=== PATIENT | male | born 1975 | race Caucasian/White ===

== ENCOUNTER 2017-07-03 13:50 | Observation (INO) ==
--- NOTE | 2017-07-03 14:09 | Emergency Department Note ---
Disposition Clinical Impression: Hypokalemia Disposition: Admitted As Inpatient Condition: Good Weakness HPI - General Chief complaint: ED General Medical Stated complaint: has "episode" hypokalemia, not able to sit up Source: patient Mode of arrival: EMS Limitations: no limitations Nursing Notes Reviewed: Yes Vital Signs Reviewed: Yes - History of Present Illness HPI Narrative: Patient presents to the ED via EMS with complaint of generalized weakness. States when he woke up around 11:15 this morning he was weak all over and did not have enough strength to be able to sit up and had to be helped out of bed by roommates at [facility]. 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 [facility] he saw numerous specialists when he was younger, including endocrinology, who could not figure out an underlying cause for his hyperkalemia. He states his last episode of hypokalemia was approximately a year ago when he was in detox at [facility]. [facility] he went to the [place] yesterday on an outing, walk for 2-1/2 hours and did not hydrate well. [facility] he has also been working out heavily. He denies any muscle cramps or pain but states the general weakness is how he feels when his potassium is low. When he is at home he will increase his oral potassium on his own but he is not allowed to take his medications other than how the prescription is written while at [facility]. He has been there for 5 weeks. 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 He has smoked a half a pack per day for the past 22 years. Denies any alcohol use. He denies any abdominal pain, nausea, vomiting or diarrhea. No urinary symptoms. No upper respiratory symptoms. He has no other chronic medical problems and does not take any other medications. Denies any other endocrine problems. Pain Scale: 0 - Related Data Home Medications Medication Instructions Recorded Confirmed Potassium Chloride [Klor-Con 10] 10 meq PO DAILY 07/03/17 07/03/17 Allergies Allergy/AdvReac Type Severity Reaction Status Date / Time No Known Allergies Allergy Verified 07/03/17 13:54 Constitutional: Reports: weakness. Denies: fever, chills, weight change Eyes: Denies: eye pain, eye discharge, vision change ENT ED: Denies: ear pain, throat pain, dental pain, hearing loss, epistaxis, congestion, dysphagia Cardiovascular: Denies: chest pain, palpitations, dyspnea on exertion, edema, syncope Respiratory: Denies: cough, dyspnea, wheezes, hemoptysis, stridor Gastrointestinal: Denies: abdominal pain, nausea, vomiting, diarrhea, constipation, hematemesis, melena, hematochezia Genitourinary: Denies: urgency, dysuria, frequency, hematuria Musculoskeletal: Denies: back pain, neck pain, arthralgia, myalgia Integumentary: Denies: rash, abrasion, lesions Neurological: Denies: headache, weakness, numbness, paresthesias, confusion, abnormal gait, vertigo Psychiatric: Denies: anxiety, depression, suicidal thoughts, homicidal thoughts , auditory hallucinations, visual hallucinations Endocrine: Denies: fatigue Hematological/Lymphatic: Denies: easy bleeding, easy bruising Allergic/Immunologic: Denies: facial swelling, urticaria Past Medical History - Past Medical History Medical history: Reports: other (hypokalemia) Psychiatric history: Reports: no psych history - Social History Smoking Status: Current every day smoker Alcohol use: Reports: none Drug use: Reports: none Physical Exam - General Limitations: no limitations General appearance: alert, in no apparent distress - Head Head exam: atraumatic, normocephalic, normal inspection - Eye Eye exam: Present: normal appearance, PERRL, EOMI - ENT ENT exam: normal exam, normal oropharynx, mucous membranes moist - Neck Neck exam: Present: normal inspection, full ROM, trachea midline - Chest Chest inspection: Present: normal inspection, symmetric chest wall rise - Respiratory Respiratory exam: Present: normal lung sounds bilaterally - Cardiovascular Cardiovascular exam: Present: regular rate, normal rhythm, normal heart sounds - Abdominal Exam Abdominal exam: Present: soft, Non-Tender. Absent: tenderness, distention, guarding, rebound, rigidity - Extremities Exam Extremities exam: Present: normal inspection, full ROM. Absent: tenderness, pedal edema - Back Exam Back exam: Present: normal inspection, full ROM. Absent: tenderness - Neurological Exam Neurological exam: Present: alert, oriented X3, CN II-XII intact, reflexes normal. Absent: motor sensory deficit - Expanded Neurological Exam Motor strength - LUE: 4/5 Motor strength - RUE: 4/5 Motor strength - LLE: 4/5 Motor strength - RLE: 4/5 Sensory exam upper extremity: light touch: Normal Sensory exam lower extremity: light touch: Normal - Psychiatric Psychiatric exam: Present: normal affect, normal mood - Skin Skin exam: Present: warm, dry, intact, normal color Course Course Narrative: Patient presents to the ED complaining of generalized weakness with a history of chronic hypokalemia. He has no other complaints and physical exam is normal other than generalized weakness in both proximal and distal muscle groups in all extremities. Will start IV fluids for possible dehydration and obtain lab work. Symptoms are concerning for recurrent hypokalemia, dehydration other electrolyte abnormality. Low suspicion for any cardiac or neurologic pathology. - Reevaluation(s) Reevaluation #1: CBC is unremarkable. Patient is hypokalemic with a potassium was 2. Remainder of electrolytes are normal. BUN/creatinine ratio is slightly elevated although creatinine is below normal. TSH is normal. Will continue with IV fluids and start potassium replacement. Will check magnesium and phosphorus as well. Reevaluation #2: Given patient's significant potassium deficit he will require significant replacement with continued monitoring of his electrolytes. Discussed with patient admission for continued potassium supplementation and repeat lab work and he is in agreement. I spoke to the hospitalist on-call, Dr. Das, who has agreed to admit the patient. Vital Signs Temperature 98.3 F 07/03/17 13:55 Pulse Rate 87 07/03/17 13:55 Respiratory Rate 18 07/03/17 13:55 Blood Pressure 136/78 07/03/17 13:55 O2 Sat by Pulse Oximetry 96 07/03/17 13:55 Temperature 99.6 F 07/04/17 03:52 Pulse Rate 69 07/04/17 03:52 Respiratory Rate 16 07/04/17 03:52 Blood Pressure 134/73 07/04/17 03:52 O2 Sat by Pulse Oximetry 96 07/04/17 03:52 Oxygen Delivery Oxygen Delivery Room Air Weakness - Differential Diagnosis Differential Diagnosis: Likely: dehydration, metabolic, thyroid/endocrine disorder - Medical Records Medical records reviewed: Yes I reviewed the patient's medical records. - Lab Data Lab results reviewed: Yes I reviewed the patient's lab results. Result diagrams: 07/03/17 14:24 07/04/17 03:43 Lab Results 07/03/17 07/03/17 07/03/17 Range/Units 14:24 14:24 14:24 WBC 9.1 (4.3-11.1) K/mcL RBC 5.52 H (4.19-5.50) M/mcL Hgb 15.4 (12.9-16.9) g/dL Hct 45.4 (37.5-50.1) % MCV 82.2 L (83.0-100.0) fL MCH 27.9 L (28.0-33.3) pg MCHC 33.9 (31.6-35.5) g/dL RDW 13.3 (11.5-14.5) % Plt Count 208 (140-400) K/mcL MPV 8.5 L (9.4-12.4) fL Immature Gran % 0.4 (0-4) % Seg Neutrophils % 61.7 % Lymphocytes % 27.9 % Monocytes % 7.3 % Eosinophils % 2.1 % Basophils % 0.6 % Neutrophils # 5.6 (1.6-8.9) K/mcL Lymphocytes # 2.5 (0.6-4.6) K/mcL Monocytes # 0.7 (0.0-1.3) K/mcL Eosinophils # 0.2 (0.0-0.6) K/mcL Basophils # 0.1 (0.0-0.2) K/mcL Sodium 138 (136-145) mEq/L Potassium 2.0 L* (3.5-5.1) mEq/L Chloride 108 H (98-107) mEq/L Carbon Dioxide 23 (23-29) mEq/L BUN 24 H (6-20) mg/dL Creatinine 0.69 L (0.70-1.30) mg/dL Est GFR ( Amer) > 60 (> 60) Est GFR (Non-Af Amer) > 60 (> 60) BUN/Creatinine Ratio 35 H (6-26) Glucose 90 (70-105) mg/dL Calculated Osmolality 290 (280-300) Lactic Acid 0.7 (0.5-2.2) mmol/L Calcium 9.1 (8.6-10.3) mg/dL TSH 0.991 (0.340-5.600) mcIU/mL
[2017-07-03] MEDS: 0.9 % Sodium Chloride 1,000 ML IVC ONE ×2 (14:30→16:06)
[2017-07-03 14:42] LABS: Basophils # 0.1 K/mcL (0.0-0.2); Basophils % 0.6 %; Eosinophils # 0.2 K/mcL (0.0-0.6); Eosinophils % 2.1 %; Hematocrit 45.4 % (37.5-50.1); Hemoglobin 15.4 g/dL (12.9-16.9); Immature Granulocytes % 0.4 % (0-4); Lymphocytes # 2.5 K/mcL (0.6-4.6); Lymphocytes % 27.9 %; Mean Corpuscular HGB Conc 33.9 g/dL (31.6-35.5); Mean Corpuscular Hemoglobin 27.9 pg (28.0-33.3); Mean Corpuscular Volume 82.2 fL (83.0-100.0); Mean Platelet Volume 8.5 fL (9.4-12.4); Monocytes # 0.7 K/mcL (0.0-1.3); Monocytes % 7.3 %; Neutrophils # 5.6 K/mcL (1.6-8.9); Platelet Count 208 K/mcL (140-400); Red Blood Count 5.52 M/mcL (4.19-5.50); Red Cell Distribution Width 13.3 % (11.5-14.5); Segmented Neutrophils % 61.7 %
[2017-07-03 15:04] LABS: BUN/Creatinine Ratio 35 (6-26); Blood Urea Nitrogen 24 mg/dL (6-20); Calcium 9.1 mg/dL (8.6-10.3); Carbon Dioxide 23 mEq/L (23-29); Chloride 108 mEq/L (98-107); Glucose 90 mg/dL (70-105); Osmolality,Calculated 290 (280-300); Sodium 138 mEq/L (136-145); eGFR For African Americans > 60 (> 60); eGFR For Non-African Americans > 60 (> 60)
[2017-07-03] MEDS ORDERED: 0.9 % Sodium Chloride 1,000 ML ONE ×2 (16:03→20:54)
[2017-07-03 16:08] LABS: Thyroid Stimulating Hormone 0.991 mcIU/mL (0.340-5.600)
[2017-07-03] MEDS ORDERED: Naloxone 0.4 MG/ML INJ IVP PRN ×2 (19:53→20:54)
[2017-07-03 22:38] LABS: Magnesium 1.7 mg/dL (1.6-2.6); Phosphorous 2.3 mg/dL (2.7-4.5)
[2017-07-03] MEDS ORDERED: 0.9 % Sodium Chloride 1,000 ML IVC SCH (23:30)
[2017-07-04 04:16] LABS: BUN/Creatinine Ratio 24 (6-26); Blood Urea Nitrogen 17 mg/dL (6-20); Calcium 8.4 mg/dL (8.6-10.3); Carbon Dioxide 22 mEq/L (23-29); Chloride 112 mEq/L (98-107); Glucose 106 mg/dL (70-105); Osmolality,Calculated 292 (280-300); Potassium 1.7 mEq/L (3.5-5.1); Sodium 140 mEq/L (136-145); eGFR For African Americans > 60 (> 60); eGFR For Non-African Americans > 60 (> 60)
[2017-07-04] MEDS: Magnesium Oxide 400 MG TABLET PO SCH ×2 (04:43→12:23)
[2017-07-04] MEDS ORDERED: Magnesium Oxide 400 MG TABLET PO ONE (06:30)
--- NOTE | 2017-07-04 11:06 | Internal Med History&Physical ---
Date of Encounter: 07/04/17 Time of Encounter: 10:30 Assessment and Plan (1) Hypokalemia Current visit: Yes Status: Acute He has been ordered IV and oral potassium supplementation. Labs will be monitored. (2) Hypophosphatemia Current visit: Yes Status: Acute We will give Neutra-Phos and monitor labs. Internal Medicine - H&P: HPI Chief complaint: Weakness Admitted From: Emergency Dept Plans for Post Hospital Care: Home History of present illness: Mr. Hinojosa is a 42 year old male who came to emergency room stating he had profound weakness and inability to get himself out of bed early in the morning. He suspected he had recurrent hypokalemia so came to emergency room. His potassium level was 2.0. He was given oral and IV potassium supplementation and was admitted to [facility] floor for ongoing care needs. He reports he was diagnosed with hypokalemia at age 15. He reports his father and several cousins have chronic hypokalemia. He is presently taking 10 mEq of potassium daily but since he was diagnosed his daily dose has ranged from 10- 300 mEq daily. He has never been evaluated at a [place] to ascertain a specific diagnosis/etiology. He denies vomiting or diarrhea. He denies OTC or illicit drug use at this time. Past Med Surg Social Fam HX - Past Medical History Medical history: other (hypokalemia) Psychiatric history: no psych history - Past Surgical History Surgical History: no surgical history - Social History Smoking Status: Current every day smoker Packs per day: 1/2 Smokeless Tobacco Status: No Alcohol use: none Drug use: none - Family History Father Hx Family Genitourinary Disorders: Yes (low potassium of unknown cause) Mother Living Status: Hx Family Cardiac Disorders: Yes (OK) Internal Medicine - H&P: Meds Potassium Chloride [Klor-Con 10] 10 meq PO DAILY 07/03/17 [History] 3 Allergy/AdvReac Type Severity Reaction Status Date / Time No Known Allergies Allergy Verified 07/03/17 13:54 All Systems PM: A 10-system review of systems was performed and is negative for pertinent findings except as documented above in the HPI. Review of systems: Gen.: He states his weight has increased 60 pounds in the past year. He states this is due to quitting illicit drugs and increased food intake. Cardiovascular: He denies chest pain OK hypertension heart failure angina DVT or pulmonary embolus Respiratory: He has smoked since age 18 up to one pack per day. He denies chronic lung disease GI: He denies disorders of his liver gallbladder or exocrine pancreas. He denies vomiting or diarrhea. : Denies hematuria dysuria or kidney stones Neurologic: He denies syncope strokes or seizures Endocrine: He denies diabetes thyroid disease or hyperlipidemia Hematology/oncology: He denies blood disorders cancers or anemia Psychiatric: He denies anxiety depression or other mental health issues [place] skeletal: He denies arthritis gout other bone joint or muscle disorders. He had muscle weakness as per history of present illness. - Constitutional Vitals: Temp Pulse Resp BP Pulse Ox 98.7 F 85 16 109/64 95 07/04/17 06:54 07/04/17 06:54 07/04/17 06:54 07/04/17 06:54 07/04/17 06:54 Exam: Gen.: He is a well-developed well-nourished male sitting in bed who appears in no acute distress HEENT: Head is atraumatic and normocephalic. Eyes: EOMI. There is no scleral icterus. Mouth: Mucosa is moist. Neck: Supple and nontender. There is no thyromegaly or adenopathy noted. Heart: Regular without murmurs gallops or ectopics Lungs: No wheezes or crackles are heard. Abdomen: Soft and nontender. No masses or guarding are noted. Extremities: There is no cyanosis of his fingernails. There is no edema of his legs. Neurologic: Mental status: He is talkative and a good historian. Cranial nerves : Smile is symmetric. Forehead wrinkles bilaterally. Tongue protrudes midline. EOMI. Motor: There is no pronator drift. Cerebellar: Finger to nose is intact bilaterally. Skin: Warm and dry Internal Med - H&P Results - Labs CBC & Chem 7: 07/03/17 14:24 07/04/17 03:43 Labs: BMP 07/03/17 07/04/17 22:05 03:43 Sodium 140 Potassium 2.0 L* 1.7 L* Chloride 112 H Carbon Dioxide 22 L BUN 17 Creatinine 0.71 Glucose 106 H Calcium 8.4 L - VTE Reasons for not Prescribing Prophylaxis: Treatment not Indicated - Low risk for VTE
[2017-07-04] MEDS ORDERED: 0.9 % Sodium Chloride w KCl 20 MEQ/1,000 ML MLS IVC SCH (11:15)
[2017-07-04 11:20] VITALS: BP 132/75
[2017-07-04 12:03] LABS: Magnesium 1.9 mg/dL (1.6-2.6); Potassium 5.3 mEq/L (3.5-5.1)
--- NOTE | 2017-07-04 12:27 | Discharge Summary ---
Date of Encounter: 07/04/17 Time of Encounter: 12:18 - Discharge Diagnosis (1) Hypokalemia Priority: Primary Status: Resolved (2) Hypophosphatemia Priority: Secondary Status: Acute Hospital course: Mr. Hinojosa is a 42 year old male who came to emergency room stating he had profound weakness and inability to get himself out of bed early in the morning. He suspected he had recurrent hypokalemia so came to emergency room. His potassium level was 2.0. He was given oral and IV potassium supplementation and was admitted to [facility] floor for ongoing care needs. Initial orders were written by the emergency room physician. I saw him on July 04 and performed a history and physical. He received 40 mEq of potassium placement orally and additional 40 mEq by IV route in emergency room. His potassium level was unchanged at 2.0 on follow-up labs so he received an additional 40 mEq orally and 40 mEq by IV on [facility] floor. A repeat potassium level was unimproved at 1.7 so he was given 60 mEq orally and 40 mEq IV. Potassium level had risen to 5.3 on follow-up labs. Phosphorous level returned low at 2.3. He was ordered 1 dose of Neutra-Phos. He initially was agreeable to be transferred to [facility] for further testing/ intervention but he changed his mind and wished to be discharged home. I encouraged him strongly to have referral to [facility] as an outpatient to have additional testing. He will follow with his PCP at [facility] within 1 week. I recommend repeat potassium and phosphorus level be drawn routinely until stability is demonstrated. - Time Spent with Patient Total time spent providing and/or coordinating discharge services: - Discharge Medications Home Medications: Potassium Chloride [Klor-Con 10] 10 meq PO DAILY 07/03/17 [History] Allergies/Adverse Reactions: 3 Allergy/AdvReac Type Severity Reaction Status Date / Time No Known Allergies Allergy Verified 07/03/17 13:54 Date of admission: 07/03/17 20:21 Primary care physician: PCP NONE - Constitutional Vitals: Temp Pulse Resp BP Pulse Ox 98.2 F 80 16 132/75 98 07/04/17 11:18 07/04/17 11:18 07/04/17 11:18 07/04/17 11:18 07/04/17 11:18 - Patient Status Disposition: Home, Self-Care Condition: Good Functional capacity at discharge: independent ambulation Overall status at discharge: patient is progressing back to baseline - Discharge Instructions Follow Up With: NONE,PCP [Primary Care Provider] - 1 week - Diet and Activity Activity: resume usual activities as tolerated Diet: advance to your usual diet - VTE Reasons for not Prescribing Prophylaxis: Treatment not Indicated - Low risk for VTE
== END 2017-07-04 13:25 | disposition home or self-care (01) ==
LOC: INPPIK 13:50 → EMEROOPIK 13:50 → INPPIK 20:45
PROVIDERS: ADMIT Internal Medicine; ATTEND Internal Medicine